=== PATIENT | male | born 1990 | race Caucasian/White ===

== ENCOUNTER 2023-10-02 16:17 | Emergency (ER) | payer BC, SELFPAY ==
[2023-10-02 17:19] VITALS: BP 128/65; PULSE 67; TEMP 37.1; O2SAT 97
--- NOTE | 2023-10-02 17:58 | ED.BACK ---
HPI - Back Pain/Injury General Chief Complaint: Back Pain/Injury Stated Complaint: back spasm Time Seen by Provider: 10/02/23 17:49 Source: patient Mode of arrival: ambulatory Limitations: no limitations History of Present Illness HPI Narrative: This is a 33-year-old male who presents to the ED with chief complaint of acute on chronic back pain. Reports coccyx injury many years ago and deals with intermittent back spasms ever since. Patient reports that he has been sitting up and down in his chair a lot for recent classes that he is taking and feels this is contributing to his flare-up back pain. States he is out of his cyclobenzaprine. Denies fevers, chills, saddle anesthesia, lower extremity numbness, weakness, bowel or bladder dysfunction. Currently being set up to have ortho spine evaluation. Patient has secondary complaints of left forearm a redness and swelling. He has been learning to tattoos and tattooed his own arm recently. Patient reports some a green pus drainage from the central area of redness. Denies spreading redness up the arm. Related Data Allergies Allergy/AdvReac Type Severity Reaction Status Date / Time No Known Allergies Allergy Verified 10/02/23 18:08 Review of Systems Review of Systems: All systems as dictated in HPI Exam Narrative: GENERAL: Well-appearing, well-nourished, and in no acute distress. HEAD: Normocephalic, atraumatic. EYES: PERRLA and EOMI. ENT: Nares clear, no rhinorrhea or epistaxis. Mucous membranes moist. Oropharynx without tonsillar hypertrophy exudate or other lesions. NECK: Supple. No adenopathy or masses. CHEST: No respiratory distress. Clear to auscultation. No wheezes rales or rhonchi HEART: Regular rate and rhythm. No murmur heard. Normal peripheral pulses. ABDOMEN: Soft, nontender, nondistended, normal active bowel sounds. MSK: No midline spinal tenderness throughout the spine. Mild paraspinal left and right lumbar tenderness, worse on the right. Equivocal straight leg raise on the right. Negative on the left. 5/5 strength and sensation in the lower extremities. No saddle anesthesia. SKIN: Warm, dry, no rash. 2 cm area of nodular swelling to the dorsal left forearm. Central punctate lesion draining a purulent material. No red streaking up the arm. NEURO: Alert and oriented x3. No focal deficits. PSYCH: Normal mood and affect. Course Vital Signs Vital signs: Vital Signs Temperature 98.7 F 10/02/23 17:19 Pulse Rate 67 10/02/23 17:19 Blood Pressure 128/65 10/02/23 17:19 Pulse Oximetry 97 10/02/23 17:19 Temperature 98.7 F 10/02/23 17:19 Pulse Rate 67 10/02/23 17:19 Blood Pressure 128/65 10/02/23 17:19 Pulse Oximetry 97 10/02/23 17:19 MDM - Back Pain/Injury MDM Narrative Medical decision making narrative: This is a 33-year-old male who presents to the ED for chief complaint of right-sided lower back spasm. seems to be acute on chronic back pain. No red flag back signs or symptoms today. No IV drug use history. Secondary complaints of left forearm dorsal swelling and redness after trying to do his tattoos. Exam shows paraspinal tenderness to the lumbar spine. There is also a draining swollen nodule to the left dorsal forearm. Mild surrounding cellulitis. No streaking up the arm. No systemic signs or symptoms. Rx for cyclobenzaprine, Toradol, Bactrim given. Pt will be discharged in stable condition. Return precautions given and supportive measures discussed. Pt is understanding and agreeable with plan for discharge and follow-up with PCP. Discharge Plan Discharge Clinical Impression: Back muscle spasm, Cellulitis Patient Disposition: Home, Self-Care Condition: Stable Instructions: Antibiotic Form, Back Pain (ED) Additional Instructions: Your exam today shows back spasms of the lumbar spine. Please take cyclobenzaprine as needed. Toradol as a short course of anti-inflammato
[2023-10-02] MEDS: KETOROLAC 30 MG/ML VIAL (*BKC) IM (18:14)
== END 2023-10-02 18:36 | disposition home or self-care (01) ==
LOC: ANHED 18:10
PROVIDERS: Emergency Provider Physician Assistant; PCP Internal Medicine
DX: M62.830 Muscle spasm of back (principal); L03.114 Cellulitis of left upper limb
CPT/HCPCS: 96372; 99283; J1885

== ENCOUNTER 2023-12-28 20:42 | Emergency (ER) | payer BC, SELFPAY ==
[2023-12-28 20:44] VITALS: BP 147/83; PULSE 106; RESP 18; TEMP 36.4; O2SAT 97
[2023-12-28] MEDS: KETOROLAC 30 MG/ML VIAL (*BKC) IM (23:58)
[2023-12-28] MEDS: ACETAMINOPHEN 500 MG TABLET 1000 MG PO (23:58)
--- NOTE | 2023-12-29 00:43 | ED.BACK ---
HPI - Back Pain/Injury General Chief Complaint: Back Pain/Injury Stated Complaint: back spasms Time Seen by Provider: 12/28/23 22:48 Source: patient Mode of arrival: ambulatory Limitations: no limitations History of Present Illness HPI Narrative: This is a 33 year old male that presents to the ER for low back pain. Reports about a year ago he had a fall and fractured several lumbar spine vertebrae. Reports since he has intermittent flares of low back pain. Today he was working out and has been experiencing low back pain since. Worse with movement and relieved with rest. Reports some muscle spasming. Denies weakness or numbness. Related Data Allergies Allergy/AdvReac Type Severity Reaction Status Date / Time No Known Allergies Allergy Verified 10/02/23 18:08 Review of Systems Review of Systems: CONSTITUTIONAL: Denies fever MUSCULOSKELETAL: Reports back pain, joint pain, and myalgia. NEUROLOGIC: Denies numbness, or weakness. All systems reviewed & are unremarkable except as noted in HPI and below PMFSH Past Medical History Medical History (Updated 12/29/23 @ 00:49 by Joan Montiel PA-C) History of depression Social History Social History (Updated 12/29/23 @ 00:46 by Joan Montiel PA-C) Substance use: former Substance use type: opiates Exam Narrative: GENERAL: Well-appearing, well-nourished, and in no acute distress. HEAD: Normocephalic, atraumatic. EYES: EOMI. CHEST: Clear to auscultation. No respiratory distress. No wheezes rales or rhonchi HEART: Regular rate and rhythm. No murmur heard. Normal peripheral pulses. BACK: No midline spinal tenderness. Tender to palpation of right lumbar paraspinal musculature EXTREMITIES: Normal range of motion. No edema. Strength equal in bilateral lower extremities (5/5). Normal DP pulses SKIN: Warm, dry, no rash. NEURO: No focal deficits. Alert and oriented x3. PSYCH: Normal mood and affect Course Course Emergency Course: Patient agrees with plan of care Vital Signs Vital signs: Vital Signs Temperature 97.6 F 12/28/23 20:44 Pulse Rate 106 H 12/28/23 20:44 Respiratory Rate 18 12/28/23 20:44 Blood Pressure 147/83 H 12/28/23 20:44 Pulse Oximetry 97 12/28/23 20:44 Oxygen Delivery Room Air 12/28/23 20:44 Temperature 97.6 F 12/28/23 20:44 Pulse Rate 106 H 12/28/23 20:44 Respiratory Rate 18 12/28/23 20:44 Blood Pressure 147/83 H 12/28/23 20:44 Pulse Oximetry 97 12/28/23 20:44 Oxygen Delivery Room Air 12/28/23 20:44 MDM - Back Pain/Injury MDM Narrative Medical decision making narrative: Patient presents to the emergency department for low back pain after working out today. No certain injury. Patient is neurologically intact. Given dose of Toradol and Tylenol with improvement. Will be continued on Tylenol, anti-inflammatories and muscle relaxers as needed for pain. Will be given follow-up with Neurosurgery. He was given warnings to return to the ER Differential Diagnosis Differential diagnosis: Likely lumbar radiculopathy and strain of lumbar region Critical Care Time Critical Care Time Critical Care Time: No Discharge Plan Discharge Clinical Impression: Strain of lumbar region Qualifiers: Encounter type: initial encounter Qualified Code(s): S39.012A - Strain of muscle, fascia and tendon of lower back, initial encounter Patient Disposition: Home, Self-Care Condition: Stable Instructions: Acute Low Back Pain (ED) Additional Instructions: Return to the ER if you experience weakness, numbness, bowel/bladder incontinence, or any other symptoms that are concerning to you Rest, use ice/heat, take anti-inflammatories (Aleve, Ibuprofen, Naproxen, etc) or Tylenol as needed for pain as well as muscle relaxer (Flexeril) as needed for pain. Muscle relaxers can make you drowsy, do not drive if you take this Follow up with Neurosurgery Prescriptions: New cyclobenzaprine 10 mg tablet
--- NOTE | 2023-12-29 00:59 | PC.NURSE ---
zeina notified of patient release. They will be here liseth.
[2023-12-29 01:00] VITALS: BP 113/80; PULSE 72; RESP 15; O2SAT 95
== END 2023-12-29 01:02 | disposition home or self-care (01) ==
PROVIDERS: Emergency Provider Physician Assistant; PCP Internal Medicine
DX: S39.012A Strain of muscle, fascia and tendon of lower back, initial encounter (principal); X50.9XXA Other and unspecified overexertion or strenuous movements or postures, initial encounter
CPT/HCPCS: 96372; 99283; A9270; J1885

== ENCOUNTER 2024-01-12 09:30 | Emergency (ER) | payer BC, SELFPAY ==
--- NOTE | 2024-01-12 09:55 | ED.GENADULT ---
HPI - General Adult General Chief complaint: Skin/Abscess/Foreign Body Stated complaint: infection on butt cheek Time Seen by Provider: 01/12/24 09:37 History of Present Illness HPI narrative: Patient is a 33-year-old male who presents ER with infection to his right buttock. Ongoing for 4 days. Draining in his underwear. No fevers or chills or sweats. Has had similar infections previously. No fevers or chills or sweats. No difficulty with defecation. Related Data Allergies Allergy/AdvReac Type Severity Reaction Status Date / Time No Known Allergies Allergy Verified 01/12/24 09:30 Review of Systems Constitutional: Constitutional: Reports no additional constitutional complaints Musculoskeletal: Musculoskeletal: Reports no additional musculoskeletal complaints Integumentary/Breasts: Skin/Breast: Denies pruritus, Reports erythema and Denies rash Comments: Possible abscess PMFSH Past Medical History Medical History (Updated 01/12/24 @ 10:52 by Adan Brooks MD) History of depression Social History Social History (Updated 12/29/23 @ 00:46 by Joan Montiel PA-C) Substance use: former Substance use type: opiates Exam Narrative: GENERAL: Well-appearing, well-nourished, and in no acute distress. HEAD: Normocephalic, atraumatic. ENT: Mucous membranes moist. EXTREMITIES: Normal range of motion. No edema. SKIN: Warm, dry. Right buttock with 5 cm diameter induration with erythema with central area that looks like it may have been draining. NEURO: Alert and oriented x3. PSYCH: Normal mood and affect. Course Vital Signs Vital signs: Vital Signs Temperature 98.3 F 01/12/24 09:56 Pulse Rate 102 H 01/12/24 09:56 Respiratory Rate 20 01/12/24 09:56 Blood Pressure 138/88 01/12/24 09:56 Pulse Oximetry 100 01/12/24 09:56 Temperature 97.7 F 01/12/24 11:03 Pulse Rate 88 01/12/24 11:03 Respiratory Rate 16 01/12/24 11:03 Blood Pressure 132/80 01/12/24 11:03 Pulse Oximetry 98 01/12/24 11:03 Procedures Abscess I/D buttock: Date of Incision: 01/12/24 Side (if applicable): right Local Anesthetic: lidocaine 1% and with epi Technique: incised with #11 blade Irrigation: No Packing used?: iodoform I&D Results: Pus Complications: pain Medical Decision Making Vital Signs Vital Signs: Vital Signs Temperature 98.3 F 01/12/24 09:56 Pulse Rate 102 H 01/12/24 09:56 Respiratory Rate 20 01/12/24 09:56 Blood Pressure 138/88 01/12/24 09:56 Pulse Oximetry 100 01/12/24 09:56 Temperature 97.7 F 01/12/24 11:03 Pulse Rate 88 01/12/24 11:03 Respiratory Rate 16 01/12/24 11:03 Blood Pressure 132/80 01/12/24 11:03 Pulse Oximetry 98 01/12/24 11:03 Discharge Plan Discharge Clinical Impression: Abscess of skin or subcutaneous tissue Patient Disposition: Home, Self-Care Condition: Stable Instructions: Antibiotic Form, Abscess (ED) Additional Instructions: Return ER if you have fever over 100.4, you have increased pain, or you have additional concerns. Remove your packing in 2 days. Prescriptions: New sulfamethoxazole-trimethoprim [Bactrim DS] 800-160 mg tablet 1 tablet PO Q12H Qty: 20 0RF No Action ketorolac 10 mg tablet 10 mg PO Q8H PRN (Reason: pain) Qty: 15 0RF Rx Instructions: maximum total duration of 5 days from all oral, intranasal, or parenteral formulations cyclobenzaprine 10 mg tablet 10 mg PO TID PRN (Reason: muscle spasm) Qty: 30 0RF sulfamethoxazole-trimethoprim [Bactrim DS] 800-160 mg tablet 1 tablet PO Q12H Qty: 14 0RF cyclobenzaprine 10 mg tablet 10 mg PO TID PRN (Reason: muscle spasm) Qty: 14 0RF Follow-up/Referrals: Alexis Hutchins MD [Primary Care Provider] - 1 Week
[2024-01-12 09:56] VITALS: BP 138/88; PULSE 102; RESP 20; TEMP 36.8; O2SAT 100
[2024-01-12 11:03] VITALS: BP 132/80; PULSE 88; RESP 16; TEMP 36.5; O2SAT 98
== END 2024-01-12 11:04 | disposition home or self-care (01) ==
PROVIDERS: Emergency Provider Emergency Medicine; PCP Internal Medicine
DX: L02.31 Cutaneous abscess of buttock (principal)
CPT/HCPCS: 10061; 99283